=== PATIENT | female | born 1930 | race Hispanic/Latino ===

== ENCOUNTER 2017-04-03 17:21 | Inpatient (IN) | payer MEDICARE ==
--- NOTE | 2017-04-03 17:47 | ED PDOC ---
HPI: General Adult Time Seen by Provider: 04/03/17 17:31 Chief Complaint (Nursing): Medical Clearance Chief Complaint (Provider): Aggressive behavior History Per: Patient, Family History/Exam Limitations: clinical condition Onset/Duration Of Symptoms: Days (months) Have you had recent travel within the past 21 days to any of the following countries: [place], [place], [place] or [place]?: No Current Symptoms Are (Timing): Still Present Additional Complaint(s): Pt. with dementia and has been in a fci in [place]. Proxy brought pt. from there to [place] and [facility] as she wants pt. to be in [place]. States she can't take care of her. Has worsening dementia where pt. is not listening, resistant to things , and less verbal coherent communication. Per family, no chest pain, nausea, vomit, fever, dyspnea noted. Limited H and P due to dementia. Past Medical History Reviewed: Nursing Documentation, Vital Signs Vital Signs: Last Vital Signs Temp 98.1 F 04/03/17 17:37 Pulse 80 04/03/17 17:37 Resp 20 04/03/17 17:37 BP 162/82 H 04/03/17 17:37 Pulse Ox 97 04/03/17 17:49 - Medical History PMH: Alzheimer's Disease, HTN, Hypercholesterolemia - Surgical History Surgical History: No Surg Hx - Family History Family History: States: Unknown Family Hx - Living Arrangements Living Arrangements: With Family - Social History Current smoker - smoking cessation education provided: No Alcohol: None Drugs: Denies - Allergies Allergies/Adverse Reactions: Allergies Allergy/AdvReac Type Severity Reaction Status Date / Time No Known Allergies Allergy Verified 04/03/17 17:37 Review of Systems Review Of Systems: ROS cannot be obtained secondary to pt's inabilty to answer questions. Physical Exam - Reviewed Nursing Documentation Reviewed: Yes Vital Signs Reviewed: Yes - Physical Exam Appears: Positive for: Non-toxic, No Acute Distress Head Exam: Positive for: ATRAUMATIC, NORMAL INSPECTION, NORMOCEPHALIC Skin: Positive for: Normal Color, Warm, DRY Eye Exam: Positive for: EOMI, Normal appearance, PERRL ENT: Positive for: Normal ENT Inspection Neck: Positive for: Normal, Painless ROM, Supple Cardiovascular/Chest: Positive for: Regular Rate, Rhythm Respiratory: Positive for: CNT, Normal Breath Sounds Gastrointestinal/Abdominal: Positive for: Normal Exam, Bowel Sounds, Soft. Negative for: Tenderness Back: Positive for: Normal Inspection. Negative for: L CVA Tenderness, R CVA Tenderness Extremity: Positive for: Normal ROM. Negative for: Tenderness, Pedal Edema Neurologic/Psych: Positive for: Alert, Other (Follows some commands, but not able to speak in a converation; speaking in tangent words (not new, but worsening for pt.)). Negative for: Oriented - Laboratory Results Result Diagrams: 04/03/17 17:57 04/03/17 17:57 Interpretation Of Abn Labs: no acute - ECG ECG: Positive for: Interpreted By Me, Viewed By Me ECG Rhythm: Positive for: Normal QRS, Normal ST Segment, Sinus Rhythm O2 Sat by Pulse Oximetry: 97 - Radiology X-Ray: Read By Radiologist X-Ray Interpretation: No Acute Disease - Progress ED Course And Treament: 1854: Pending urine and psych. Dr. Barfield to take over care. Disposition - Clinical Impression Clinical Impression: Dementia - Patient ED Disposition Is Patient to be Admitted: Transfer of Care Counseled Patient/Family Regarding: Studies Performed, Diagnosis - Disposition Disposition: Transfer of Care Disposition Time: 18:55 Condition: STABLE Patient Signed Over To: Kam Barfield Present On Arrival: None
[2017-04-03 18:00] LABS: BASO # 0.1 K/uL (0.0-0.2); BASO % 1.3 % (0.0-2.0); EOS # 0.3 K/uL (0.0-0.7); HEMATOCRIT 37.9 % (34.0-47.0); LYMPH # 3.2 K/uL (1.0-4.3); LYMPH % 38.1 % (20.0-40.0); MEAN CELL VOLUME 89.8 fl (81.0-99.0); MEAN CORPUSCULAR HGB CONC 32.3 g/dL (33.0-37.0); MEAN PLATELET VOLUME 10.3 fl (7.2-11.7); MONO # 0.9 K/uL (0.0-0.8); MONO % 10.6 % (0.0-10.0); NRBC % 0.4 % (0.0-0.0); RED CELL DISTRIBUTION WIDTH 13.4 % (11.5-14.5); WHITE BLOOD COUNT 8.5 K/uL (4.8-10.8)
[2017-04-03 18:17] LABS: ALB/GLOB RATIO 1.1 (1.0-2.1); ALCOHOL SERUM < 10 mg/dl (0-10); ALKALINE PHOSPHATASE 103 U/L (38-126); ALT/SGPT 22 U/L (9-52); AST/SGOT 30 U/L (14-36); BILIRUBIN,TOTAL 0.3 mg/dl (0.2-1.3); BLOOD UREA NITROGEN 21 mg/dl (7-17); CALCIUM 9.3 mg/dL (8.4-10.2); CARBON DIOXIDE 29 mmol/L (22-30); CHLORIDE 106 mmol/L (98-107); GFR AFRICAN-AMERICAN > 60; GLUCOSE,RANDOM 112 mg/dL (65-105); POTASSIUM 4.2 MMOL/L (3.6-5.0); SODIUM 145 mmol/l (132-148); TOTAL PROTEIN 8.2 G/DL (6.3-8.2)
--- NOTE | 2017-04-03 18:28 | RAD ---
HISTORY: dyspnea COMPARISON: No prior. FINDINGS: LUNGS: The lungs are clear. PLEURA: No significant pleural effusion identified, no pneumothorax apparent. CARDIOVASCULAR: Normal. OSSEOUS STRUCTURES: No significant abnormalities. VISUALIZED UPPER ABDOMEN: Normal. OTHER FINDINGS: None. IMPRESSION: No active pulmonary disease.
--- NOTE | 2017-04-03 19:40 | ED PDOC ---
- Laboratory Results Result Diagrams: 04/03/17 17:57 04/03/17 17:57 - ECG O2 Sat by Pulse Oximetry: 97 (RA) Pulse Ox Interpretation: Normal Medical Decision Making Medical Decision Making: Time: 1899 --Patient was endorsed to provider by Dr. Bradley Jordan. Pending crisis evaluation. Time: 2099 --Patient was seen by Crisis and admitted under Dr. Herzog with dx: behavioral disturbance and dementia. Scribe Attestation: Documented by Radha Norwood, acting as a scribe for Kam Barfield MD. Provider Scribe Attestation: All medical record entries made by the Scribe were at my direction and personally dictated by me. I have reviewed the chart and agree that the record accurately reflects my personal performance of the history, physical exam, medical decision making, and the department course for this patient. I have also personally directed, reviewed, and agree with the discharge instructions and disposition. Disposition - Clinical Impression Clinical Impression: Dementia, Dementia with behavioral disturbance - POA Present On Arrival: None - Disposition Disposition: Admitted as In-Patient Disposition Time: 21:05 Condition: STABLE Forms: [employer] (Kazakh)
[2017-04-03 22:24] LABS: URINE COLOR YELLOW (YELLOW)
[2017-04-03 22:25] LABS: URINE BILIRUBIN NEGATIVE (NEGATIVE); URINE BLOOD TRACE-LYSED (NEGATIVE); URINE GLUCOSE (UA) NEGATIVE (Normal); URINE KETONE TRACE mg/dL (NEGATIVE)
[2017-04-03 22:26] LABS: PH,URINE 5.5 (5.0-8.0); RBC URINE 8 /hpf (0-3); URINE LEUKOCYTE ESTERASE TRACE Leu/uL (Negative); URINE PROTEIN 30 mg/dL (NEGATIVE); URINE UROBILINOGEN 0.2 mg/dL (0.2-1.0)
[2017-04-03 22:27] LABS: WBC URINE 26 /hpf (0-5)
[2017-04-03 22:28] LABS: URINE BACTERIA MOD (<OCC)
[2017-04-03] MEDS ORDERED: Alum-Mag Hydrox-Simethicone Susp (30 mL) PO PRN (23:34)
[2017-04-03] MEDS ORDERED: Bismuth Subsalicylate 262 mg/15 ml Sus (240 ml) PO PRN (23:34)
[2017-04-03] MEDS ORDERED: Magnesium Hydroxide Susp 30 ml UD PO PRN (23:34)
[2017-04-04 07:16] LABS: IRON 47 ug/dL (37-170)
[2017-04-04 07:29] LABS: CHOLESTEROL 157 mg/dL (0-199)
[2017-04-04 07:37] LABS: T4 9.87 ug/dl (5.5-11.0)
[2017-04-04 07:51] LABS: THYROID STIMULATING HORMONE 3.85 mIU/ML (0.46-4.68)
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
[2017-04-04] MEDS ORDERED: Ciprofloxacin 400mg/200ml D5W 400 MG/200 ML BAG IVPB SCH (10:00)
--- NOTE | 2017-04-04 10:41 | CARD ---
APPROVED REPORT EKG Measurement Heart [id number] CT [id number] <Conclusion> Normal sinus rhythm Moderate voltage criteria for LVH, may be normal variant Borderline ECG
[2017-04-04] MEDS: Levothyroxine 25 MCG TAB PO SCH (12:22)
[2017-04-04 12:55] LABS: FOLATE > 20.0 ng/mL
--- NOTE | 2017-04-04 18:28 | PCM.BM ---
<Lore Serra - Last Filed: 04/04/17 18:26> Treatment Plan Problems - Problems identified on initial assessmt Agressive Behavior Date Initiated: 04/04/17 Time Initiated: 18:27 Assessment reference: NA Status: Active Treatment assets and liabiliti Patient Assests: cooperative, good support system Patient Liabilities: medical problems, imparied memory, language/speech - Milieu Protocol Maintain good personal hygiene: every shift Encourage regular showers, every shift Remind patient to perform daily oral care, every shift Assist patient to perform ADL's Maintain personal safety: every shift Educate patient to report safety concerns to staff, every shift Monitor environment for contraband/sharps Medication safety: Monitor for expected outcome, potential side effects: every shift, Assess barriers to learning: every shift, Assess readiness for medication education: every shift Milieu Narrative: Alzheimer's Dementia w/ behavioral disturbance, Depressive Disorder -Admit to psychiatry -Case discussed w/ POA -Continue Celexa 10 mg PO Daily -Continue Aricept 10 mg PO HS -Start Namenda 5 mg PO Daily -Individual and group therapy -Disposition planning -No 1:1 indicated at this time -Medicine consult; patient on Cipro for UTI Discharge/Continuing Care - Treatment Team Participation Patient/Family/SO Statement: Alzheimer's Dementia w/ behavioral disturbance, Depressive Disorder -Admit to psychiatry -Case discussed w/ POA -Continue Celexa 10 mg PO Daily -Continue Aricept 10 mg PO HS -Start Namenda 5 mg PO Daily -Individual and group therapy -Disposition planning -No 1:1 indicated at this time -Medicine consult; patient on Cipro for UTI <Viviana Su - Last Filed: 04/05/17 07:52> - Diagnosis (1) Depression Status: Acute Interventions: Individual and group therapy, Medication management, Psychoeducation 04/05/17 07:52 (2) Dementia with behavioral disturbance Status: Acute Interventions: Individual and group therapy, Medication management, Psychoeducation 04/05/17 07:52 <Yu Jorge - Last Filed: 04/05/17 13:21> Family Contact Family involvement: Family/SO is involved Discharge/Continuing Care - Education Needs Education Needs: Family Medication, Family Diagnosis/Disease Process, Family Coping Skills, Family Anger Management skills, Family Placement options, Family Community resources, Family Activities of Daily Living, Family Uses of Medical Equipment, Family Health Practices/Safety, Family Personal Hygiene/Grooming, Family Aftercare Safety Plan, Patient Medication, Patient Diagnosis/Disease Process, Patient Coping Skills, Patient Anger Management skills, Patient Placement options, Patient Community resources, Patient Activities of Daily Living, Patient Uses of Medical Equipment, Patient Health Practices/Safety, Patient Personal Hygiene/Grooming, Patient Aftercare Safety Plan - Discharge Discharge Criteria: Tolerates medication w/o severe side effects, Free of agitation, Normal sleep pattern, Reduction of target symptoms Discharge to:: Home, With Family - Additional Comments 04/05/17 13:18 Pt discussed in team meeting. Reason for admission reviewed and discussed. Pt's social and medical issues reviewed. Pt's medications reviewed and discussed. Pt' s tx plan reviewed. Card Hand to contact pt's daughter and POA to obtain collateral information. Card Hand will continue to follow case. - Treatment Team Participation Discussed with Family/SO: No (Will be informed via t/c ) Was Patient/Family/SO present at Treatment Team Meeting: No (Pt observed to be asleep and not arousable)
--- NOTE | 2017-04-05 08:38 | PCM.PYCHPN ---
Psychiatric Progress Note - Psychiatric Progress Note Patient seen today, length of contact: Patient evaluated, case discussed w/ staff, chart reviewed, 35 min Patient Chief Complaint: "I'm okay" Problems Identified/Issues Discussed: Patient has no acute complaints. No periods of agitation or aggression. No depression/anxiety/SI/HI. Patient is only oriented to self and does not know why she is in the hospital. Medication Change: No Medical Record Reviewed: Yes Consults ordered or reviewed: Medicine, Podiatry, Physical Therapy Mental Status Examination - Cognitive Function Orientation: Person Memory: Impaired Attention: Poor Concentration: Poor Association: Loose Fund of Knowledge: Poor Decription of patient's judgement and insights: Chronic poor I/J due to dementia - Mood Mood: Neutral - Affect Affect: Constricted - Formal Thought Process Formal Thought Process: Loosening of associations Psychotic Thoughts and Behaviors: Denies AH/VH - Suicidal Ideation Suicidal Ideation: No - Homicidal Ideation Homicidal Ideation: No Goal/Treatment Plan - Goal/Treatment Plan Need for Continued Stay: Remain at risks for inpatient hospitalization, Severe functional impairment Progress Toward Problem(s) and Goals/Treatment Plan: Alzheimer's Dementia w/ behavioral disturbance, Depressive Disorder -Case discussed w/ POA -Continue Celexa 10 mg PO Daily -Continue Aricept 10 mg PO HS -Continue Namenda 5 mg PO Daily -Will consider starting Depakote 125 mg PO Daily@1700 if the patient shows signs of aggression or agitation -Individual and group therapy -Disposition planning -Medicine consult; patient on Cipro for UTI Estimated Date of D/C: 04/09/17 - Smoking Cessation Smoking Cessation Initiated: No Reason for not providing: Not indicated
[2017-04-05] MEDS: Levothyroxine 25 MCG TAB PO SCH (09:00)
[2017-04-06] MEDS: Levothyroxine 25 MCG TAB PO SCH (10:26)
--- NOTE | 2017-04-06 13:33 | PCM.PYCHPN ---
Psychiatric Progress Note - Psychiatric Progress Note Patient seen today, length of contact: Patient evaluated, case discussed w/ staff, chart reviewed, 35 min Patient Chief Complaint: pt defers understanding of reasons as to why she is in hospital, pt. requires redirection to be medication adherence, requires assistance oob to chair sleeping fair per report, appetite fair Problems Identified/Issues Discussed: alteration in cognition, alteration in behavior, alteration in self care-has health care proxy Medical Problems: pt being followed by hospitalist Diagnostic Results: per psychiatrist per medicine per nursing per social media manager Medication Change: No Medical Record Reviewed: Yes Consults ordered or reviewed: pt being followed by hospitalist Mental Status Examination - Cognitive Function Orientation: Person Memory: Impaired Attention: Poor Concentration: Poor Association: Loose Fund of Knowledge: Poor Decription of patient's judgement and insights: impaired - Mood Mood: Neutral - Affect Affect: Constricted - Speech Speech: Soft - Formal Thought Process Formal Thought Process: Loosening of associations - Suicidal Ideation Suicidal Ideation: No - Homicidal Ideation Homicidal Ideation: No Goal/Treatment Plan - Goal/Treatment Plan Need for Continued Stay: Remain at risks for inpatient hospitalization, Severe functional impairment Progress Toward Problem(s) and Goals/Treatment Plan: inpt milieu vital signs and visual observation per protocol and per status nursing staff to monitor intake (?decrease appetite) falls precautions, oob with assistance adjust meds per status discharge planning in progresss Estimated Date of D/C: 04/09/17 - Smoking Cessation Smoking Cessation Initiated: No Reason for not providing: pt defers
[2017-04-07] MEDS: Levothyroxine 25 MCG TAB PO SCH (08:42)
--- NOTE | 2017-04-07 14:52 | PCM.PYCHPN ---
Psychiatric Progress Note - Psychiatric Progress Note Patient seen today, length of contact: Patient evaluated, case discussed w/ staff, chart reviewed, 35 min Patient Chief Complaint: Pt. continues to be confused at times yelling per report of staff redirectable verbally per staff report. Impaired understanding of reasons as to why she is admitted. is in hospital, pt. requires redirection to be medication adherence, requires assistance oob to chair sleeping fair per report, appetite fair Problems Identified/Issues Discussed: alteration in cognition, alteration in behavior, alteration in self care-has health care proxy Medical Problems: pt being followed by hospitalist Diagnostic Results: per psychiatrist per medicine per nursing per psychiatric social worker DSM 5 Symptoms Update: chronic impaired memory, self care Medication Change: No Medical Record Reviewed: Yes Consults ordered or reviewed: pt being followed by hospitalist Mental Status Examination - Cognitive Function Orientation: Person Memory: Impaired Attention: Poor Concentration: Poor Association: Loose Fund of Knowledge: Poor Decription of patient's judgement and insights: impaired - Mood Mood: Neutral - Affect Affect: Constricted - Speech Speech: Soft - Formal Thought Process Formal Thought Process: Loosening of associations - Suicidal Ideation Suicidal Ideation: No - Homicidal Ideation Homicidal Ideation: No Goal/Treatment Plan - Goal/Treatment Plan Need for Continued Stay: Remain at risks for inpatient hospitalization, Severe functional impairment Progress Toward Problem(s) and Goals/Treatment Plan: inpt milieu vital signs and visual observation per protocol and per status nursing staff to monitor intake (?decrease appetite) falls precautions, oob with assistance adjust meds per status discharge planning in progresss Estimated Date of D/C: 04/09/17 - Smoking Cessation Smoking Cessation Initiated: No Reason for not providing: pt defers
[2017-04-08] MEDS: Levothyroxine 25 MCG TAB PO SCH (08:52)
--- NOTE | 2017-04-08 10:46 | PCM.PYCHPN ---
Psychiatric Progress Note - Psychiatric Progress Note Patient seen today, length of contact: Patient evaluated, case discussed w/ staff, chart reviewed, 35 min Patient Chief Complaint: "I'm okay" Problems Identified/Issues Discussed: Patient has no acute complaints. No periods of agitation or aggression. No depression/anxiety/SI/HI. Patient is only oriented to self and does not know why she is in the hospital. Patient does get irritable at times when having cares performed on her, but otherwise is calm and cooperative. Medication Change: No Medical Record Reviewed: Yes Consults ordered or reviewed: Medicine- patient being treated for a UTI, Podiatry, Physical Therapy Mental Status Examination - Cognitive Function Orientation: Person Memory: Impaired Attention: Poor Concentration: Poor Association: Loose Fund of Knowledge: Poor Decription of patient's judgement and insights: Chronic poor I/J due to dementia - Mood Mood: Neutral - Affect Affect: Constricted - Speech Speech: Soft - Formal Thought Process Formal Thought Process: Loosening of associations Psychotic Thoughts and Behaviors: NO AH/VH/paranoia/delusions - Suicidal Ideation Suicidal Ideation: No - Homicidal Ideation Homicidal Ideation: No Goal/Treatment Plan - Goal/Treatment Plan Need for Continued Stay: Remain at risks for inpatient hospitalization, Severe functional impairment Progress Toward Problem(s) and Goals/Treatment Plan: Alzheimer's Dementia w/ behavioral disturbance, Depressive Disorder -Case discussed w/ POA -Continue Celexa 10 mg PO Daily -Continue Aricept 10 mg PO HS -Continue Namenda 5 mg PO Daily -Individual and group therapy -Disposition planning -Medicine consult; patient on Cipro for UTI Estimated Date of D/C: 04/09/17
--- NOTE | 2017-04-08 13:13 | CP.PCM.CON ---
History of Present Illness - History of Present Illness History of Present Illness: Hospitalist Consult Note 86 year old female patient PMHx dementia seen in psychiatric unit at the request for medical consultation. HPI obtained with the assistance of speech scientist. Patient is pleasant, NAD. Patient is a poor historian with decreased verbal coherent communication. Patient aware of her name, but unable to assess ROS secondary to dementia. Patient denies of any issues with urination ; however per manager endoscopy, patient has been frequently urinating on herself. Patient denies N/V/F/D/C/SOB/chest palpitations. PMH/PSH/FH/SH/Meds/All/ROS as per chart; unable to be obtained from patient / dementia Review of Systems - Review of Systems All systems: reviewed and no additional remarkable complaints except (as per HPI ) Past Patient History - Past Social History Alcohol: None Drugs: Denies - CARDIAC Hx Cardiac Disorders: Yes (HTN/ High Cholesterol) - PULMONARY Hx Tuberculosis: No - NEUROLOGICAL Hx Neurological Disorder: Yes (Dementia) - ENDOCRINE/METABOLIC Hx Hypothyroidism: Yes - HEMATOLOGICAL/ONCOLOGICAL Hx Cancer: No Hx Human Immunodeficiency Virus (HIV): No - MUSCULOSKELETAL/RHEUMATOLOGICAL Hx Falls: Yes - GENITOURINARY/GYNECOLOGICAL Hx Sexually Transmitted Disorders: No - PSYCHIATRIC Hx Anxiety: Yes Hx Bipolar Disorder: Yes Hx Depression: Yes Hx Substance Use: No - SURGICAL HISTORY Hx Orthopedic Surgery: Yes (Left knee surgery) Meds Allergies/Adverse Reactions: Allergies Allergy/AdvReac Type Severity Reaction Status Date / Time No Known Allergies Allergy Verified 04/03/17 17:37 - Medications Medications: Current Medications Acetaminophen (Tylenol 325mg Tab) 650 mg PO Q4 PRN PRN Reason: Pain, moderate (4-7) Al Hydrox/Mg Hydrox/Simethicone (Maalox Plus 30 Ml) 30 ml PO Q4 PRN PRN Reason: Dyspepsia Atorvastatin Calcium (Lipitor) 10 mg PO HS [facility] Last Admin: 04/07/17 21:07 Dose: 10 mg Bismuth Subsalicylate (Pepto-Bismol) 524 mg PO Q4 PRN PRN Reason: Diarrhea Ciprofloxacin (Cipro) 500 mg PO Q12 [facility] PRN Reason: Protocol Last Admin: 04/08/17 08:52 Dose: 500 mg Citalopram Hydrobromide (Celexa) 10 mg PO DAILY [facility] Last Admin: 04/08/17 08:53 Dose: 10 mg Docusate Sodium (Colace) 200 mg PO HS [facility] Last Admin: 04/07/17 21:07 Dose: 200 mg Donepezil HCl (Aricept) 10 mg PO HS [facility] Last Admin: 04/07/17 21:07 Dose: 10 mg Levothyroxine Sodium (Synthroid) 25 mcg PO DAILY@0630 [facility] Last Admin: 04/08/17 08:52 Dose: 25 mcg Lorazepam (Ativan) 0.5 mg PO HS PRN PRN Reason: Insomnia Stop: 04/17/17 23:35 Lorazepam (Ativan) 0.5 mg PO Q6 PRN PRN Reason: Anixety/Agitation Stop: 04/17/17 23:35 Losartan Potassium (Cozaar) 50 mg PO DAILY [facility] Last Admin: 04/08/17 08:52 Dose: 50 mg Magnesium Hydroxide (Milk Of Magnesia) 30 ml PO HS PRN PRN Reason: Constipation Memantine (Namenda) 5 mg PO DAILY [facility] Last Admin: 04/08/17 08:53 Dose: 5 mg Sennosides (Senokot Tab) 17.[address] [facility] Last Admin: 04/07/17 21:09 Dose: 17.2 mg Physical Exam - Constitutional Appears: Well, Non-toxic, No Acute Distress, Confused - Head Exam Head Exam: ATRAUMATIC, NORMAL INSPECTION, NORMOCEPHALIC - Eye Exam Eye Exam: EOMI, Normal appearance, PERRL Pupil Exam: NORMAL ACCOMODATION, PERRL - ENT Exam ENT Exam: Mucous Membranes Moist, Normal Exam, Normal External Ear Exam - Neck Exam Neck exam: Positive for: Full Rom, Normal Inspection. Negative for: Tenderness - Respiratory Exam Respiratory Exam: Clear to Auscultation Bilateral, NORMAL BREATHING PATTERN. absent: Rales, Rhonchi, Wheezes - Cardiovascular Exam Cardiovascular Exam: REGULAR RHYTHM, +S1, +S2. absent: Rubs, Systolic Murmur - GI/Abdominal Exam GI & Abdominal Exam: Normal Bowel Sounds, Soft. absent: Firm, Guarding, Pulsatile Mass, Tenderness - Rectal Exam Rectal Exam: Deferred - Extremities Exam Extremities exam: Positive for: full ROM, normal capillary refill, normal inspection. Negative for: tenderness - Back Exam Back exam: NORMAL INSPECTION - Neurological Exam Neurological exam: Alert - Skin Skin Exam: Intact, Normal Color, Warm Results - Vital Signs Recent Vital Signs: Last Vital Signs Temp 97.3 F L 04/08/17 05:20 Pulse 73 04/08/17 08:52 Resp 20 04/08/17 05:20 BP 158/82 H 04/08/17 08:52 Pulse Ox 99 04/03/17 22:51 - Labs Result Diagrams: 04/03/17 17:57 04/03/17 17:57 Assessment & Plan (1) Dementia Assessment and Plan: Management per psychiatry Status: Acute (2) Urinary tract infection Assessment and Plan: Urinalysis from 04/03 positive for UTI Continue ciprofloxacin Follow up UA ordered today, 04/08 F/u urine culture Status: Acute (3) Stomach discomfort Assessment and Plan: Maalox prn dyspepsia Pepto Bismol prn diarrhea Status: Acute (4) Hyperlipidemia Assessment and Plan: Continue Lipitor Status: Acute (5) Hypothyroidism Assessment and Plan: Continue Synthroid Status: Acute
--- NOTE | 2017-04-09 08:20 | PCM.PYCHPN ---
Psychiatric Progress Note - Psychiatric Progress Note Patient seen today, length of contact: Patient evaluated, case discussed w/ staff, chart reviewed, 35 min Patient Chief Complaint: "I'm okay" Problems Identified/Issues Discussed: Patient has no acute complaints. No periods of agitation or aggression. No depression/anxiety/SI/HI. Patient is only oriented to self and does not know why she is in the hospital. Patient is at her baseline of functioning. Medication Change: No Medical Record Reviewed: Yes Consults ordered or reviewed: Medicine- patient being treated for a UTI, Podiatry, Physical Therapy Mental Status Examination - Cognitive Function Orientation: Person Memory: Impaired Attention: Poor Concentration: Poor Association: Loose Fund of Knowledge: Poor Decription of patient's judgement and insights: Chronic poor I/J due to dementia - Mood Mood: Neutral - Affect Affect: Constricted - Speech Speech: Soft - Formal Thought Process Formal Thought Process: Loosening of associations Psychotic Thoughts and Behaviors: NO AH/VH/paranoia/delusions - Suicidal Ideation Suicidal Ideation: No - Homicidal Ideation Homicidal Ideation: No Goal/Treatment Plan - Goal/Treatment Plan Need for Continued Stay: Severe functional impairment Progress Toward Problem(s) and Goals/Treatment Plan: Alzheimer's Dementia w/ behavioral disturbance, Depressive Disorder; patient is currently at her baseline of functioning and is psychiatrically stable. -Case discussed w/ POA -Continue Celexa 10 mg PO Daily -Continue Aricept 10 mg PO HS -Continue Namenda 5 mg PO Daily -Individual and group therapy -Disposition planning -Medicine consult appreciated; patient on Cipro for UTI for 7 days Estimated Date of D/C: 04/11/17 - Smoking Cessation Smoking Cessation Initiated: No Reason for not providing: Not indicated
[2017-04-09] MEDS: Levothyroxine 25 MCG TAB PO SCH (09:14)
[2017-04-10] MEDS: Levothyroxine 25 MCG TAB PO SCH (09:27)
[2017-04-10 15:21] LABS: RBC URINE 3 /hpf (0-3); URINE BACTERIA RARE (<OCC); URINE BILIRUBIN NEGATIVE (NEGATIVE); URINE BLOOD NEGATIVE (NEGATIVE); URINE COLOR YELLOW (YELLOW); URINE GLUCOSE (UA) NEG (Normal); URINE KETONE NEGATIVE (NEGATIVE); URINE LEUKOCYTE ESTERASE NEG Leu/uL (Negative); URINE PROTEIN NEGATIVE (NEGATIVE); URINE UROBILINOGEN 0.2-1.0 mg/dL (0.2-1.0); WBC URINE 1 /hpf (0-5)
[2017-04-10 17:20] LABS: HEMATOCRIT 35.6 % (34.0-47.0); MEAN CELL VOLUME 88.3 fl (81.0-99.0); MEAN CORPUSCULAR HEMOGLOBIN 29.1 pg (27.0-31.0); RED CELL DISTRIBUTION WIDTH 13.7 % (11.5-14.5); WHITE BLOOD COUNT 5.9 K/uL (4.8-10.8)
[2017-04-10 17:24] LABS: BLOOD UREA NITROGEN 18 mg/dl (7-17); CALCIUM 9.3 mg/dL (8.4-10.2); CARBON DIOXIDE 29 mmol/L (22-30); CHLORIDE 105 mmol/L (98-107); GFR AFRICAN-AMERICAN > 60; GLUCOSE,RANDOM 105 mg/dL (65-105); POTASSIUM 4.2 MMOL/L (3.6-5.0); SODIUM 141 mmol/l (132-148)
--- NOTE | 2017-04-10 18:35 | PCM.PYCHPN ---
Psychiatric Progress Note - Psychiatric Progress Note Patient seen today, length of contact: Patient evaluated, case discussed w/ staff, chart reviewed, 35 min Patient Chief Complaint: staff report pt. with decreased po intake, decreased alertness, remained in bed today, did not want to get out of bed. pt was seen by hospitalist today and is being treated for uti. pt requires total care. healthcare social worker is assisting team with place-has been in communication with daughter. Problems Identified/Issues Discussed: alteration in cognition, alteration in behavior, alteration in self care-has health care proxy Medical Problems: pt being followed by hospitalist Diagnostic Results: per psychiatrist per medicine per nursing per healthcare social worker DSM 5 Symptoms Update: decreased alertness, changes in po intake continues to be confused Medication Change: No Medical Record Reviewed: Yes Consults ordered or reviewed: pt is being followed by hospitalist Mental Status Examination - Cognitive Function Orientation: Person Memory: Impaired Attention: Poor Concentration: Poor Association: Loose Fund of Knowledge: Poor Decription of patient's judgement and insights: poor - Mood Mood: Neutral - Affect Affect: Constricted - Speech Speech: Soft - Formal Thought Process Formal Thought Process: Loosening of associations - Suicidal Ideation Suicidal Ideation: No - Homicidal Ideation Homicidal Ideation: No Goal/Treatment Plan - Goal/Treatment Plan Need for Continued Stay: Severe functional impairment Progress Toward Problem(s) and Goals/Treatment Plan: inpt milieu vital signs and visual observation per protocol and per status nursing staff to monitor intake (?decrease appetite)-spoke with nutrition-will assess implement calorie count falls precautions, oob with assistance adjust meds per status discharge planning in progresss Estimated Date of D/C: 04/15/17 - Smoking Cessation Smoking Cessation Initiated: No Reason for not providing: deferred
--- NOTE | 2017-04-10 19:15 | CP.PCM.CON ---
History of Present Illness - History of Present Illness History of Present Illness: Patient consulted for elongated, fungal, dystrophic, fungal nails. Patient states that nails have been this way as long as she can remember. Denies any further pedal complaints at this time. Denies N/V/F/C/CP/SOB Past Patient History - Past Social History Alcohol: None Drugs: Denies - CARDIAC Hx Cardiac Disorders: Yes (HTN/ High Cholesterol) - PULMONARY Hx Tuberculosis: No - NEUROLOGICAL Hx Neurological Disorder: Yes (Dementia) - ENDOCRINE/METABOLIC Hx Hypothyroidism: Yes - HEMATOLOGICAL/ONCOLOGICAL Hx Cancer: No Hx Human Immunodeficiency Virus (HIV): No - MUSCULOSKELETAL/RHEUMATOLOGICAL Hx Falls: Yes - GENITOURINARY/GYNECOLOGICAL Hx Sexually Transmitted Disorders: No - PSYCHIATRIC Hx Anxiety: Yes Hx Bipolar Disorder: Yes Hx Depression: Yes Hx Substance Use: No - SURGICAL HISTORY Hx Orthopedic Surgery: Yes (Left knee surgery) Meds Allergies/Adverse Reactions: Allergies Allergy/AdvReac Type Severity Reaction Status Date / Time No Known Allergies Allergy Verified 04/03/17 17:37 - Medications Medications: Current Medications Acetaminophen (Tylenol 325mg Tab) 650 mg PO Q4 PRN PRN Reason: Pain, moderate (4-7) Al Hydrox/Mg Hydrox/Simethicone (Maalox Plus 30 Ml) 30 ml PO Q4 PRN PRN Reason: Dyspepsia Atorvastatin Calcium (Lipitor) 10 mg PO HS [facility] Last Admin: 04/09/17 22:00 Dose: Not Given Bismuth Subsalicylate (Pepto-Bismol) 524 mg PO Q4 PRN PRN Reason: Diarrhea Ciprofloxacin (Cipro) 500 mg PO Q12 [facility] PRN Reason: Protocol Last Admin: 04/10/17 08:58 Dose: 500 mg Citalopram Hydrobromide (Celexa) 10 mg PO DAILY [facility] Last Admin: 04/10/17 09:26 Dose: 10 mg Docusate Sodium (Colace) 200 mg PO [facility] Last Admin: 04/09/17 22:00 Dose: Not Given Donepezil HCl (Aricept) 10 mg PO HS [facility] Last Admin: 04/09/17 22:00 Dose: Not Given Levothyroxine Sodium (Synthroid) 25 mcg PO DAILY@0630 [facility] Last Admin: 04/10/17 09:27 Dose: 25 mcg Lorazepam (Ativan) 0.5 mg PO HS PRN PRN Reason: Insomnia Stop: 04/17/17 23:35 Lorazepam (Ativan) 0.5 mg PO Q6 PRN PRN Reason: Anixety/Agitation Stop: 04/17/17 23:35 Losartan Potassium (Cozaar) 50 mg PO DAILY [facility] Last Admin: 04/10/17 09:26 Dose: 50 mg Magnesium Hydroxide (Milk Of Magnesia) 30 ml PO HS PRN PRN Reason: Constipation Memantine (Namenda) 5 mg PO DAILY [facility] Last Admin: 04/10/17 09:26 Dose: 5 mg Sennosides (Senokot Tab) 17.2 mg PO HS [facility] Last Admin: 04/09/17 22:00 Dose: Not Given Physical Exam - Constitutional Appears: Well, Non-toxic, No Acute Distress - Extremities Exam Additional comments: LE focused exam Vasc: DP/PT pulses palpable 2/4 b/l. Skin temperature warm to warm from proximal to distal. CFT < 3 seconds to all digits b/l. Pedal hair growth appreciated. No edema noted b/l Neuro: Epicritic and protective sensation grossly intact b/l Derm: No open lesions, wounds, maceration, xerosis, abnormal pigmentation or abnormal growths noted. Nails noted to be dystrophic and elongated 1-5 b/l. MSK: No POP to b/l LE. MMT 5/5 on inversion, eversion, dorsiflexion and plantarflexion of feet b/l. ROM WNL to all major joints of LE - Neurological Exam Neurological exam: Alert, Oriented x3 - Psychiatric Exam Psychiatric exam: Normal Affect, Normal Mood Results - Vital Signs Recent Vital Signs: Last Vital Signs Temp 97.8 F 04/10/17 15:23 Pulse 81 04/10/17 15:23 Resp 18 04/10/17 15:23 BP 138/70 04/10/17 15:23 Pulse Ox 99 04/03/17 22:51 - Labs Result Diagrams: 04/10/17 16:50 04/10/17 16:50 Labs: Laboratory Results - last 24 hr 04/10/17 04/10/17 04/10/17 15:00 16:50 16:50 WBC 5.9 RBC 4.03 Hgb 11.7 L Hct 35.6 MCV 88.3 MCH 29.1 MCHC 33.0 RDW 13.7 Plt Count 234 Sodium 141 Potassium 4.2 Chloride 105 Carbon Dioxide 29 Anion Gap 12 BUN 18 H Creatinine 0.8 Est GFR ( Amer) > 60 Est GFR (Non-Af Amer) > 60 Random Glucose 105 Calcium 9.3 Urine Color Yellow Urine Clarity Slighty-cloudy Urine pH 5.0 Ur Specific [place] 1.027 Urine Protein Negative Urine Glucose (UA) Neg Urine Ketones Negative Urine Blood Negative Urine Nitrate Negative Urine Bilirubin Negative Urine Urobilinogen 0.2-1.0 Ur Leukocyte Esterase Neg Urine RBC (Auto) 3 Urine Microscopic WBC 1 Ur Squamous Epith Cells 1 Urine Bacteria Rare Assessment & Plan - Assessment and Plan (Free Text) Assessment: 86 year old female seen for elongated, dystrophic, painful nails b/l Plan: Patient seen and evaluated at bedside Nails 1-5 b/l cut down to appropriate length using nail nippers without incident Patient tolerated procedure well Podiatry will sign off at this time Please reconsult as needed, thank you - Date & Time Date: 04/10/17 Time: 15:16
[2017-04-11] MEDS: Levothyroxine 25 MCG TAB PO SCH (08:40)
--- NOTE | 2017-04-11 17:09 | PCM.PYCHPN ---
Psychiatric Progress Note - Psychiatric Progress Note Patient seen today, length of contact: Patient evaluated, case discussed w/ staff, chart reviewed, 35 min Patient Chief Complaint: staff report pt. with decreased po intake, decreased alertness, remained in bed today, did not want to get out of bed. pt was seen by hospitalist today and is being treated for uti. pt requires total care. geriatric social worker is assisting team with place-has been in communication with daughter. Problems Identified/Issues Discussed: alteration in cognition, alteration in behavior, alteration in self care-has health care proxy Medical Problems: pt being followed by hospitalist Diagnostic Results: per psychiatrist per medicine per nursing per geriatric social worker DSM 5 Symptoms Update: pt seen by podiatry, pt has required much redirection to take medications and po intake-pt with decreased po intake Medication Change: No Medical Record Reviewed: Yes Consults ordered or reviewed: pt is being followed by hospitalist Mental Status Examination - Cognitive Function Orientation: Person Memory: Impaired Attention: Poor Concentration: Poor Association: Loose Fund of Knowledge: Poor Decription of patient's judgement and insights: poor - Mood Mood: Neutral - Affect Affect: Constricted - Speech Speech: Soft - Formal Thought Process Formal Thought Process: Loosening of associations - Suicidal Ideation Suicidal Ideation: No - Homicidal Ideation Homicidal Ideation: No Goal/Treatment Plan - Goal/Treatment Plan Need for Continued Stay: Severe functional impairment Progress Toward Problem(s) and Goals/Treatment Plan: inpt milieu vital signs and visual observation per protocol and per status nursing staff to monitor intake (?decrease appetite)-spoke with nutrition-will assess implement calorie count falls precautions, oob with assistance adjust meds per status pt seen by podiatry discharge planning in progresss Estimated Date of D/C: 04/15/17 - Smoking Cessation Smoking Cessation Initiated: No Reason for not providing: deferred
[2017-04-12] MEDS: Levothyroxine 25 MCG TAB PO SCH (09:27)
--- NOTE | 2017-04-12 12:57 | PCM.PYCHPN ---
Psychiatric Progress Note - Psychiatric Progress Note Patient seen today, length of contact: Patient evaluated, case discussed w/ staff, chart reviewed, 35 min Patient Chief Complaint: "I'm okay" Problems Identified/Issues Discussed: Patient is improving. She has improved eating w/ staff direction and assistance. No periods of agitation or aggression. No depression/anxiety/SI/ HI. Patient is only oriented to self and does not know why she is in the hospital. Patient completed her antibiotic course for UTI. Medication Change: No Medical Record Reviewed: Yes Consults ordered or reviewed: Medicine- patient completed antibiotic course for UTI, Podiatry, Physical Therapy Mental Status Examination - Cognitive Function Orientation: Person Memory: Impaired Attention: Poor Concentration: Poor Association: Loose Fund of Knowledge: Poor Decription of patient's judgement and insights: Chronic poor I/J due to dementia - Mood Mood: Neutral - Affect Affect: Constricted - Speech Speech: Soft - Formal Thought Process Formal Thought Process: Loosening of associations Psychotic Thoughts and Behaviors: NO AH/VH/paranoia/delusions - Suicidal Ideation Suicidal Ideation: No - Homicidal Ideation Homicidal Ideation: No Goal/Treatment Plan - Goal/Treatment Plan Need for Continued Stay: Severe functional impairment Progress Toward Problem(s) and Goals/Treatment Plan: Alzheimer's Dementia w/ behavioral disturbance, Depressive Disorder; patient is improving clinically. -Case discussed w/ POA -Continue Celexa 10 mg PO Daily -Continue Remeron 7.5 mg PO HS -Continue Aricept 10 mg PO HS -Continue Namenda 5 mg PO Daily -Individual and group therapy -Disposition planning -Medicine consult appreciated; patient completed antibiotic course for UTI Estimated Date of D/C: 04/15/17
--- NOTE | 2017-04-12 14:12 | PCM.BM ---
Treatment Plan Problems - Problems identified on initial assessmt Agressive Behavior Date Initiated: 04/04/17 Time Initiated: 18:27 Assessment reference: NA Status: Active Treatment assets and liabiliti Patient Assests: cooperative, good support system Patient Liabilities: medical problems, imparied memory, language/speech - Milieu Protocol Maintain good personal hygiene: every shift Encourage regular showers, every shift Remind patient to perform daily oral care, every shift Assist patient to perform ADL's Maintain personal safety: every shift Educate patient to report safety concerns to staff, every shift Monitor environment for contraband/sharps Medication safety: Monitor for expected outcome, potential side effects: every shift, Assess barriers to learning: every shift, Assess readiness for medication education: every shift Milieu Narrative: Alzheimer's Dementia w/ behavioral disturbance, Depressive Disorder; patient is improving clinically. -Case discussed w/ POA -Continue Celexa 10 mg PO Daily -Continue Remeron 7.5 mg PO HS -Continue Aricept 10 mg PO HS -Continue Namenda 5 mg PO Daily -Individual and group therapy -Disposition planning -Medicine consult appreciated; patient completed antibiotic course for UTI Family Contact Family involvement: Family/SO is involved Family contact: Other Family contact name: Whit Zepeda - Proxy Family contacted how many times per week?: 1 Family contact comment: [phone] Discharge/Continuing Care - Education Needs Education Needs: Family Medication, Family Diagnosis/Disease Process, Family Coping Skills, Family Anger Management skills, Family Placement options, Family Community resources, Family Activities of Daily Living, Family Uses of Medical Equipment, Family Health Practices/Safety, Family Personal Hygiene/Grooming, Family Aftercare Safety Plan, Patient Medication, Patient Diagnosis/Disease Process, Patient Coping Skills, Patient Anger Management skills, Patient Placement options, Patient Community resources, Patient Activities of Daily Living, Patient Uses of Medical Equipment, Patient Health Practices/Safety, Patient Personal Hygiene/Grooming, Patient Aftercare Safety Plan - Discharge Discharge Criteria: Tolerates medication w/o severe side effects, Free of agitation, Normal sleep pattern, Reduction of target symptoms Discharge to:: Home, With Family - Additional Comments 04/05/17 13:18 Pt discussed in team meeting. Reason for admission reviewed and discussed. Pt's social and medical issues reviewed. Pt's medications reviewed and discussed. Pt' s tx plan reviewed. Director Of Reservations to contact pt's daughter and POA to obtain collateral information. Director Of Reservations will continue to follow case. - Treatment Team Participation Patient/Family/SO Statement: Alzheimer's Dementia w/ behavioral disturbance, Depressive Disorder; patient is improving clinically. -Case discussed w/ POA -Continue Celexa 10 mg PO Daily -Continue Remeron 7.5 mg PO HS -Continue Aricept 10 mg PO HS -Continue Namenda 5 mg PO Daily -Individual and group therapy -Disposition planning -Medicine consult appreciated; patient completed antibiotic course for UTI Discussed with Family/SO: No (Will be informed via t/c ) Was Patient/Family/SO present at Treatment Team Meeting: No (Pt observed to be asleep and not arousable) Treatment Plan Review - Problem Agressive Behavior Date Initiated: 04/12/17 Time Initiated: 14:11 Progress toward outcomes: improved - Discharge / Continuing Care Discharge to:: Home, With Family Behavioral Health Services: Outpatient therapy Health Needs: Follow up care/test, Medications/Rx (Pt still requires further stabilization and medication adjustment. )
[2017-04-13] MEDS: Levothyroxine 25 MCG TAB PO SCH (08:31)
--- NOTE | 2017-04-13 08:46 | PCM.PYCHPN ---
Psychiatric Progress Note - Psychiatric Progress Note Patient seen today, length of contact: Patient evaluated, case discussed w/ staff, chart reviewed, 35 min Patient Chief Complaint: "I'm okay" Problems Identified/Issues Discussed: Patient seems to be at her baseline of functioning. She has improved eating w/ staff direction and assistance. No periods of agitation or aggression. No depression/anxiety/SI/HI. Patient is only oriented to self and does not know why she is in the hospital. Patient completed her antibiotic course for UTI. Medication Change: No Medical Record Reviewed: Yes Mental Status Examination - Cognitive Function Orientation: Person Memory: Impaired Attention: Poor Concentration: Poor Association: Loose Fund of Knowledge: Poor Decription of patient's judgement and insights: Chronic poor I/J due to dementia - Mood Mood: Neutral - Affect Affect: Constricted - Speech Speech: Soft - Formal Thought Process Formal Thought Process: Loosening of associations Psychotic Thoughts and Behaviors: NO AH/VH/paranoia/delusions - Suicidal Ideation Suicidal Ideation: No - Homicidal Ideation Homicidal Ideation: No Goal/Treatment Plan - Goal/Treatment Plan Need for Continued Stay: Severe functional impairment Progress Toward Problem(s) and Goals/Treatment Plan: Alzheimer's Dementia w/ behavioral disturbance, Depressive Disorder; patient seems to be at her baseline of functioning, will discuss disposition options with the family. -Case discussed w/ POA -Continue Celexa 10 mg PO Daily -Continue Remeron 7.5 mg PO HS -Continue Aricept 10 mg PO HS -Continue Namenda 5 mg PO Daily -Individual and group therapy -Disposition planning -Medicine consult appreciated; patient completed antibiotic course for UTI Estimated Date of D/C: 04/16/17
[2017-04-14] MEDS: Levothyroxine 25 MCG TAB PO SCH (08:33)
--- NOTE | 2017-04-14 09:35 | PCM.PYCHPN ---
Psychiatric Progress Note - Psychiatric Progress Note Patient seen today, length of contact: Patient evaluated, case discussed w/ staff, chart reviewed Patient Chief Complaint: "I'm okay" Problems Identified/Issues Discussed: No new events. Patient seems to be at her baseline of functioning. She has improved eating w/ staff direction and assistance. No periods of agitation or aggression. No depression/anxiety/SI/HI. Patient is only oriented to self and does not know why she is in the hospital. Patient completed her antibiotic course for UTI. Medication Change: No Medical Record Reviewed: Yes Mental Status Examination - Cognitive Function Orientation: Person Memory: Impaired Attention: Poor Concentration: Poor Association: Loose Fund of Knowledge: Poor Decription of patient's judgement and insights: Chronic poor I/J due to dementia - Mood Mood: Neutral - Affect Affect: Constricted - Speech Speech: Soft - Formal Thought Process Formal Thought Process: Loosening of associations Psychotic Thoughts and Behaviors: NO AH/VH/paranoia/delusions - Suicidal Ideation Suicidal Ideation: No - Homicidal Ideation Homicidal Ideation: No Goal/Treatment Plan - Goal/Treatment Plan Need for Continued Stay: Severe functional impairment Progress Toward Problem(s) and Goals/Treatment Plan: Alzheimer's Dementia w/ behavioral disturbance, Depressive Disorder; patient seems to be at her baseline of functioning, will discuss disposition options with the family. -Case discussed w/ POA -Continue Celexa 10 mg PO Daily -Continue Remeron 7.5 mg PO HS -Continue Aricept 10 mg PO HS -Continue Namenda 5 mg PO Daily -Individual and group therapy -Disposition planning -Medicine consult appreciated; patient completed antibiotic course for UTI Estimated Date of D/C: 04/16/17
--- NOTE | 2017-04-15 08:45 | PCM.PYCHPN ---
Psychiatric Progress Note - Psychiatric Progress Note Patient seen today, length of contact: Patient evaluated, case discussed w/ staff, chart reviewed Patient Chief Complaint: "I'm okay" Problems Identified/Issues Discussed: No new events over the weekend. Patient seems to be at her baseline of functioning. She has improved eating w/ staff direction and assistance. No periods of agitation or aggression. No depression/anxiety/SI/HI. Patient is only oriented to self and does not know why she is in the hospital. Patient completed her antibiotic course for UTI. Medication Change: No Medical Record Reviewed: Yes Mental Status Examination - Cognitive Function Orientation: Person Memory: Impaired Attention: Poor Concentration: Poor Association: Loose Fund of Knowledge: Poor Decription of patient's judgement and insights: Chronic poor I/J due to dementia - Mood Mood: Neutral - Affect Affect: Constricted - Speech Speech: Soft - Formal Thought Process Formal Thought Process: Loosening of associations Psychotic Thoughts and Behaviors: NO AH/VH/paranoia/delusions - Suicidal Ideation Suicidal Ideation: No - Homicidal Ideation Homicidal Ideation: No Goal/Treatment Plan - Goal/Treatment Plan Need for Continued Stay: Severe functional impairment Progress Toward Problem(s) and Goals/Treatment Plan: Alzheimer's Dementia w/ behavioral disturbance, Depressive Disorder; patient seems to be at her baseline of functioning. -Case discussed w/ POA -Continue Celexa 10 mg PO Daily -Continue Remeron 7.5 mg PO HS -Continue Aricept 10 mg PO HS -Continue Namenda 5 mg PO Daily -Individual and group therapy -Disposition planning- PAS to [facility] submitted, pending approval for long-term placement -Medicine consult appreciated; patient completed antibiotic course for UTI Estimated Date of D/C: 04/22/17
[2017-04-15] MEDS: Levothyroxine 25 MCG TAB PO SCH (10:00)
[2017-04-16 06:16] VITALS: O2SAT 20
[2017-04-16] MEDS: Levothyroxine 25 MCG TAB PO SCH (08:10)
--- NOTE | 2017-04-16 08:45 | PCM.PYCHPN ---
Psychiatric Progress Note - Psychiatric Progress Note Patient seen today, length of contact: Patient evaluated, case discussed w/ staff, chart reviewed Patient Chief Complaint: "I'm okay" Problems Identified/Issues Discussed: Patient has had poor PO intake. Remeron was increased, supplements were modified and I + Os will continue to be monitored. No periods of agitation or aggression. No depression/anxiety/SI/HI. Patient is only oriented to self and does not know why she is in the hospital. Patient completed her antibiotic course for UTI. Medication Change: Yes (Remeron increased to 15 mg PO HS) Medical Record Reviewed: Yes Consults ordered or reviewed: Medicine- patient completed antibiotic course for UTI, Podiatry, Physical Therapy, Dietitian referral Mental Status Examination - Cognitive Function Orientation: Person Memory: Impaired Attention: Poor Concentration: Poor Association: Loose Fund of Knowledge: Poor Decription of patient's judgement and insights: Chronic poor I/J due to dementia - Mood Mood: Neutral - Affect Affect: Constricted - Speech Speech: Soft - Formal Thought Process Formal Thought Process: Loosening of associations Psychotic Thoughts and Behaviors: NO AH/VH/paranoia/delusions - Suicidal Ideation Suicidal Ideation: No - Homicidal Ideation Homicidal Ideation: No Goal/Treatment Plan - Goal/Treatment Plan Need for Continued Stay: Severe functional impairment Progress Toward Problem(s) and Goals/Treatment Plan: Alzheimer's Dementia w/ behavioral disturbance, Depressive Disorder. -Case discussed w/ POA -Continue Celexa 10 mg PO Daily -Increase Remeron to 15 mg PO HS -Continue Aricept 10 mg PO HS -Continue Namenda 5 mg PO Daily -Individual and group therapy -Disposition planning- PAS to [facility] submitted, pending approval for skilled nursing placement -Medicine consult appreciated; patient completed antibiotic course for UTI Estimated Date of D/C: 04/22/17
[2017-04-17] MEDS: Levothyroxine 25 MCG TAB PO SCH (08:29)
--- NOTE | 2017-04-17 11:10 | PCM.PYCHPN ---
Psychiatric Progress Note - Psychiatric Progress Note Patient seen today, length of contact: Patient evaluated, case discussed w/ staff, chart reviewed Patient Chief Complaint: "I'm okay" Problems Identified/Issues Discussed: Patient is calm, cooperative, w/o any behavioral disturbances. She has improved PO intake. No periods of agitation or aggression. No depression/ anxiety/SI/HI. Patient is only oriented to self and does not know why she is in the hospital. Patient completed her antibiotic course for UTI. Medication Change: No Medical Record Reviewed: Yes Mental Status Examination - Cognitive Function Orientation: Person Memory: Impaired Attention: Poor Concentration: Poor Association: Loose Fund of Knowledge: Poor Decription of patient's judgement and insights: Chronic poor I/J due to dementia - Mood Mood: Neutral - Affect Affect: Constricted - Speech Speech: Soft - Formal Thought Process Formal Thought Process: Loosening of associations Psychotic Thoughts and Behaviors: NO AH/VH/paranoia/delusions - Suicidal Ideation Suicidal Ideation: No - Homicidal Ideation Homicidal Ideation: No Goal/Treatment Plan - Goal/Treatment Plan Need for Continued Stay: Severe functional impairment Progress Toward Problem(s) and Goals/Treatment Plan: Alzheimer's Dementia w/ behavioral disturbance, Depressive Disorder; patient pending prison placement. -Case discussed w/ POA -Continue Celexa 10 mg PO Daily -Continue Remeron 15 mg PO HS -Continue Aricept 10 mg PO HS -Continue Namenda 5 mg PO Daily -Individual and group therapy -Disposition planning- PAS to [facility] submitted, pending approval for prison placement -Medicine consult appreciated; patient completed antibiotic course for UTI Estimated Date of D/C: 04/18/17
--- NOTE | 2017-04-18 08:12 | PCM.PYCHPN ---
Psychiatric Progress Note - Psychiatric Progress Note Patient seen today, length of contact: Patient evaluated, case discussed w/ staff, chart reviewed Patient Chief Complaint: "I'm okay" Problems Identified/Issues Discussed: Patient is calm, cooperative, w/o any behavioral disturbances. She has improved PO intake. No periods of agitation or aggression. No depression/ anxiety/SI/HI. Patient is only oriented to self and does not know why she is in the hospital. Patient completed her antibiotic course for UTI. Medication Change: No Medical Record Reviewed: Yes Consults ordered or reviewed: Medicine- patient completed antibiotic course for UTI, Podiatry, Physical Therapy, Dietitian referral Mental Status Examination - Cognitive Function Orientation: Person Memory: Impaired Attention: Poor Concentration: Poor Association: Loose Fund of Knowledge: Poor Decription of patient's judgement and insights: Chronic poor I/J due to dementia - Mood Mood: Neutral - Affect Affect: Constricted - Speech Speech: Soft - Formal Thought Process Formal Thought Process: Loosening of associations Psychotic Thoughts and Behaviors: NO AH/VH/paranoia/delusions - Suicidal Ideation Suicidal Ideation: No - Homicidal Ideation Homicidal Ideation: No Goal/Treatment Plan - Goal/Treatment Plan Need for Continued Stay: Severe functional impairment Progress Toward Problem(s) and Goals/Treatment Plan: Alzheimer's Dementia w/ behavioral disturbance, Depressive Disorder; patient pending longterm placement. -Case discussed w/ POA -Continue Celexa 10 mg PO Daily -Continue Remeron 15 mg PO HS -Continue Aricept 10 mg PO HS -Continue Namenda 5 mg PO Daily -Individual and group therapy -Disposition planning- PAS to [facility] submitted, pending approval for longterm placement -Medicine consult appreciated; patient completed antibiotic course for UTI Estimated Date of D/C: 04/19/17
[2017-04-18] MEDS: Levothyroxine 25 MCG TAB PO SCH (08:38)
[2017-04-19] MEDS: Levothyroxine 25 MCG TAB PO SCH (09:43)
--- NOTE | 2017-04-19 13:05 | PCM.BM ---
Treatment Plan Problems - Problems identified on initial assessmt Agressive Behavior Date Initiated: 04/04/17 Time Initiated: 14:11 Assessment reference: NA Status: Referred (Pt is awaiting bed availability to [facility].) Treatment assets and liabiliti Patient Assests: cooperative, good support system Patient Liabilities: medical problems, imparied memory, language/speech - Milieu Protocol Maintain good personal hygiene: every shift Encourage regular showers, every shift Remind patient to perform daily oral care, every shift Assist patient to perform ADL's Maintain personal safety: every shift Educate patient to report safety concerns to staff, every shift Monitor environment for contraband/sharps Medication safety: Monitor for expected outcome, potential side effects: every shift, Assess barriers to learning: every shift, Assess readiness for medication education: every shift Milieu Narrative: Alzheimer's Dementia w/ behavioral disturbance, Depressive Disorder; patient pending [facility] placement. -Case discussed w/ POA -Continue Celexa 10 mg PO Daily -Continue Remeron 15 mg PO HS -Continue Aricept 10 mg PO HS -Continue Namenda 5 mg PO Daily -Individual and group therapy -Disposition planning- PAS to [facility] submitted, pending approval for [facility] placement -Medicine consult appreciated; patient completed antibiotic course for UTI Family Contact Family involvement: Family/SO is involved Family contact: Other Family contact name: Whit Zepeda - Proxy Family contacted how many times per week?: 1 Family contact comment: [phone] Discharge/Continuing Care - Education Needs Education Needs: Family Medication, Family Diagnosis/Disease Process, Family Coping Skills, Family Anger Management skills, Family Placement options, Family Community resources, Family Activities of Daily Living, Family Uses of Medical Equipment, Family Health Practices/Safety, Family Personal Hygiene/Grooming, Family Aftercare Safety Plan, Patient Medication, Patient Diagnosis/Disease Process, Patient Coping Skills, Patient Anger Management skills, Patient Placement options, Patient Community resources, Patient Activities of Daily Living, Patient Uses of Medical Equipment, Patient Health Practices/Safety, Patient Personal Hygiene/Grooming, Patient Aftercare Safety Plan - Discharge Discharge Criteria: Tolerates medication w/o severe side effects, Free of agitation, Normal sleep pattern, Reduction of target symptoms Discharge to:: Home, With Family - Additional Comments 04/05/17 13:18 Pt discussed in team meeting. Reason for admission reviewed and discussed. Pt's social and medical issues reviewed. Pt's medications reviewed and discussed. Pt' s tx plan reviewed. Director Of Occupational Health to contact pt's daughter and POA to obtain collateral information. Director Of Occupational Health will continue to follow case. - Treatment Team Participation Patient/Family/SO Statement: Alzheimer's Dementia w/ behavioral disturbance, Depressive Disorder; patient pending [facility] placement. -Case discussed w/ POA -Continue Celexa 10 mg PO Daily -Continue Remeron 15 mg PO HS -Continue Aricept 10 mg PO HS -Continue Namenda 5 mg PO Daily -Individual and group therapy -Disposition planning- PAS to [facility] submitted, pending approval for [facility] placement -Medicine consult appreciated; patient completed antibiotic course for UTI Discussed with Family/SO: No (Will be informed via t/c ) Was Patient/Family/SO present at Treatment Team Meeting: No (Pt observed to be asleep and not arousable) Treatment Plan Review - Problem Agressive Behavior Date Initiated: 04/12/17 Time Initiated: 14:11 Progress toward outcomes: improved
[2017-04-20] MEDS: Levothyroxine 25 MCG TAB PO SCH (08:52)
--- NOTE | 2017-04-20 13:05 | PCM.PYCHPN ---
Psychiatric Progress Note - Psychiatric Progress Note Patient seen today, length of contact: Patient evaluated, case discussed w/ staff, chart reviewed Patient Chief Complaint: i am fine Problems Identified/Issues Discussed: patient is calm, cooperative, no reported behavioral disturbances. denied s/ hi denied perceptual disturbances, no reported side effects of medications DSM 5 Symptoms Update: dementia Medication Change: No Medical Record Reviewed: Yes Mental Status Examination - Cognitive Function Orientation: Person Memory: Impaired Attention: Poor Concentration: Poor Association: Loose Fund of Knowledge: Poor - Mood Mood: Neutral - Affect Affect: Constricted - Speech Speech: Soft - Formal Thought Process Formal Thought Process: Loosening of associations - Suicidal Ideation Suicidal Ideation: No - Homicidal Ideation Homicidal Ideation: No Goal/Treatment Plan - Goal/Treatment Plan Need for Continued Stay: Severe functional impairment Progress Toward Problem(s) and Goals/Treatment Plan: continue current medications group and supportive therapy Estimated Date of D/C: 04/22/17
[2017-04-21] MEDS: Levothyroxine 25 MCG TAB PO SCH (09:08)
--- NOTE | 2017-04-21 14:34 | PCM.PYCHPN ---
Psychiatric Progress Note - Psychiatric Progress Note Patient seen today, length of contact: Patient evaluated, case discussed w/ staff, chart reviewed Patient Chief Complaint: I am ok Problems Identified/Issues Discussed: patient is calm, cooperative, no reported behavioral disturbances. denied s/ hi denied perceptual disturbances, no reported side effects of medications Medication Change: No Medical Record Reviewed: Yes Mental Status Examination - Cognitive Function Orientation: Person Memory: Impaired Attention: Poor Concentration: Poor Association: Loose Fund of Knowledge: Poor - Mood Mood: Neutral - Affect Affect: Constricted - Speech Speech: Soft - Formal Thought Process Formal Thought Process: Loosening of associations - Suicidal Ideation Suicidal Ideation: No - Homicidal Ideation Homicidal Ideation: No Goal/Treatment Plan - Goal/Treatment Plan Need for Continued Stay: Severe functional impairment Progress Toward Problem(s) and Goals/Treatment Plan: continue current medications group and supportive therapy Estimated Date of D/C: 04/22/17
[2017-04-22] MEDS: Levothyroxine 25 MCG TAB PO SCH (08:21)
--- NOTE | 2017-04-22 08:37 | PCM.PYCHPN ---
Psychiatric Progress Note - Psychiatric Progress Note Patient seen today, length of contact: Patient evaluated, case discussed w/ staff, chart reviewed Patient Chief Complaint: "I'm okay" Problems Identified/Issues Discussed: No new events over the weekend. Patient is calm, cooperative, w/o any behavioral disturbances. She has improved PO intake. No periods of agitation or aggression. No depression/anxiety/SI/HI. Patient is only oriented to self and does not know why she is in the hospital. Patient completed her antibiotic course for UTI. Medication Change: No Medical Record Reviewed: Yes Consults ordered or reviewed: Medicine- patient completed antibiotic course for UTI, Podiatry, Physical Therapy, Dietitian referral Mental Status Examination - Cognitive Function Orientation: Person Memory: Impaired Attention: Poor Concentration: Poor Association: Loose Fund of Knowledge: Poor Decription of patient's judgement and insights: Chronic poor I/J due to dementia - Mood Mood: Neutral - Affect Affect: Constricted - Speech Speech: Soft - Formal Thought Process Formal Thought Process: Loosening of associations Psychotic Thoughts and Behaviors: NO AH/VH/paranoia/delusions - Suicidal Ideation Suicidal Ideation: No - Homicidal Ideation Homicidal Ideation: No Goal/Treatment Plan - Goal/Treatment Plan Need for Continued Stay: Severe functional impairment Progress Toward Problem(s) and Goals/Treatment Plan: Alzheimer's Dementia w/ behavioral disturbance, Depressive Disorder; patient pending senior care placement. -Case discussed w/ POA -Continue Celexa 10 mg PO Daily -Continue Remeron 15 mg PO HS -Continue Aricept 10 mg PO HS -Continue Namenda 5 mg PO Daily -Individual and group therapy -Disposition planning- PAS to [facility] submitted, pending approval for senior care placement -Medicine consult appreciated; patient completed antibiotic course for UTI Estimated Date of D/C: 04/23/17
--- NOTE | 2017-04-23 08:20 | PCM.PYCHPN ---
Psychiatric Progress Note - Psychiatric Progress Note Patient seen today, length of contact: Patient evaluated, case discussed w/ staff, chart reviewed Patient Chief Complaint: "I'm okay" Problems Identified/Issues Discussed: No new events overnight. Patient is calm, cooperative, w/o any behavioral disturbances. She has improved PO intake. No periods of agitation or aggression. No depression/anxiety/SI/HI. Patient is only oriented to self and does not know why she is in the hospital. Patient completed her antibiotic course for UTI. Medication Change: No Medical Record Reviewed: Yes Consults ordered or reviewed: Medicine- patient completed antibiotic course for UTI, Podiatry, Physical Therapy, Dietitian referral Mental Status Examination - Cognitive Function Orientation: Person Memory: Impaired Attention: Poor Concentration: Poor Association: Loose Fund of Knowledge: Poor Decription of patient's judgement and insights: Chronic poor I/J due to dementia - Mood Mood: Neutral - Affect Affect: Broad - Speech Speech: Soft - Formal Thought Process Formal Thought Process: Loosening of associations Psychotic Thoughts and Behaviors: NO AH/VH/paranoia/delusions - Suicidal Ideation Suicidal Ideation: No - Homicidal Ideation Homicidal Ideation: No Goal/Treatment Plan - Goal/Treatment Plan Need for Continued Stay: Severe functional impairment Progress Toward Problem(s) and Goals/Treatment Plan: Alzheimer's Dementia w/ behavioral disturbance, Depressive Disorder; patient pending shelter placement. -Case discussed w/ POA -Continue Celexa 10 mg PO Daily -Continue Remeron 15 mg PO HS -Continue Aricept 10 mg PO HS -Continue Namenda 5 mg PO Daily -Individual and group therapy -Disposition planning- PAS to [facility] submitted, pending approval for shelter placement -Medicine consult appreciated; patient completed antibiotic course for UTI Estimated Date of D/C: 04/26/17
[2017-04-23] MEDS: Levothyroxine 25 MCG TAB PO SCH (08:33)
--- NOTE | 2017-04-24 08:07 | PCM.PYCHPN ---
Psychiatric Progress Note - Psychiatric Progress Note Patient seen today, length of contact: Patient evaluated, case discussed w/ staff, chart reviewed Patient Chief Complaint: "I'm okay" Problems Identified/Issues Discussed: No new events overnight. Patient is calm, cooperative, w/o any behavioral disturbances. She has improved PO intake. No periods of agitation or aggression. No depression/anxiety/SI/HI. Patient is only oriented to self and does not know why she is in the hospital. Patient completed her antibiotic course for UTI. Medication Change: No Medical Record Reviewed: Yes Consults ordered or reviewed: Medicine- patient completed antibiotic course for UTI, Podiatry, Physical Therapy, Dietitian referral Mental Status Examination - Cognitive Function Orientation: Person Memory: Impaired Attention: Poor Concentration: Poor Association: Loose Fund of Knowledge: Poor Decription of patient's judgement and insights: Chronic poor I/J due to dementia - Mood Mood: Neutral - Affect Affect: Broad - Speech Speech: Soft - Formal Thought Process Formal Thought Process: Loosening of associations Psychotic Thoughts and Behaviors: NO AH/VH/paranoia/delusions - Suicidal Ideation Suicidal Ideation: No - Homicidal Ideation Homicidal Ideation: No Goal/Treatment Plan - Goal/Treatment Plan Need for Continued Stay: Severe functional impairment Progress Toward Problem(s) and Goals/Treatment Plan: Alzheimer's Dementia w/ behavioral disturbance, Depressive Disorder; patient pending long term placement. -Case discussed w/ POA -Continue Celexa 10 mg PO Daily -Continue Remeron 15 mg PO HS -Continue Aricept 10 mg PO HS -Continue Namenda 5 mg PO Daily -Individual and group therapy -Disposition planning- PAS to [facility] submitted, pending approval for long term placement -Medicine consult appreciated; patient completed antibiotic course for UTI Estimated Date of D/C: 04/29/17 - Smoking Cessation Smoking Cessation Initiated: No Reason for not providing: Not indicated
[2017-04-24] MEDS: Levothyroxine 25 MCG TAB PO SCH (11:28)
--- NOTE | 2017-04-25 07:16 | PCM.PYCHPN ---
Psychiatric Progress Note - Psychiatric Progress Note Patient seen today, length of contact: Patient evaluated, case discussed w/ staff, chart reviewed Patient Chief Complaint: "I'm okay" Problems Identified/Issues Discussed: No new events. Patient is calm, cooperative, w/o any behavioral disturbances. She has improved PO intake. No periods of agitation or aggression. No depression/anxiety/SI/HI. Patient is only oriented to self and does not know why she is in the hospital. Patient completed her antibiotic course for UTI. Medication Change: No Medical Record Reviewed: Yes Consults ordered or reviewed: Medicine- patient completed antibiotic course for UTI, Podiatry, Physical Therapy, Dietitian referral Mental Status Examination - Cognitive Function Orientation: Person Memory: Impaired Attention: Poor Concentration: Poor Association: Loose Fund of Knowledge: Poor Decription of patient's judgement and insights: Chronic poor I/J due to dementia - Mood Mood: Neutral - Affect Affect: Broad - Speech Speech: Soft - Formal Thought Process Formal Thought Process: Loosening of associations Psychotic Thoughts and Behaviors: NO AH/VH/paranoia/delusions - Suicidal Ideation Suicidal Ideation: No - Homicidal Ideation Homicidal Ideation: No Goal/Treatment Plan - Goal/Treatment Plan Need for Continued Stay: Severe functional impairment Progress Toward Problem(s) and Goals/Treatment Plan: Alzheimer's Dementia w/ behavioral disturbance, Depressive Disorder; patient pending prison placement. -Case discussed w/ POA -Continue Celexa 10 mg PO Daily -Continue Remeron 15 mg PO HS -Continue Aricept 10 mg PO HS -Continue Namenda 5 mg PO Daily -Individual and group therapy -Disposition planning- PAS to [facility] submitted, pending approval for prison placement -Medicine consult appreciated; patient completed antibiotic course for UTI Estimated Date of D/C: 04/29/17
[2017-04-25] MEDS: Levothyroxine 25 MCG TAB PO SCH (08:24)
[2017-04-26] MEDS: Levothyroxine 25 MCG TAB PO SCH (08:27)
--- NOTE | 2017-04-26 08:30 | PCM.PYCHPN ---
Psychiatric Progress Note - Psychiatric Progress Note Patient seen today, length of contact: Patient evaluated, case discussed w/ staff, chart reviewed Patient Chief Complaint: "I'm okay" Problems Identified/Issues Discussed: No new events overnight. Patient is calm, cooperative, w/o any behavioral disturbances. She has improved PO intake. No periods of agitation or aggression. No depression/anxiety/SI/HI. Patient is only oriented to self and does not know why she is in the hospital. Patient completed her antibiotic course for UTI. Medication Change: No Medical Record Reviewed: Yes Consults ordered or reviewed: Medicine- patient completed antibiotic course for UTI, Podiatry, Physical Therapy, Dietitian referral Mental Status Examination - Cognitive Function Orientation: Person Memory: Impaired Attention: Poor Concentration: Poor Association: Loose Fund of Knowledge: Poor Decription of patient's judgement and insights: Chronic poor I/J due to dementia - Mood Mood: Neutral - Affect Affect: Broad - Speech Speech: Soft - Formal Thought Process Formal Thought Process: Loosening of associations Psychotic Thoughts and Behaviors: NO AH/VH/paranoia/delusions - Suicidal Ideation Suicidal Ideation: No - Homicidal Ideation Homicidal Ideation: No Goal/Treatment Plan - Goal/Treatment Plan Need for Continued Stay: Severe functional impairment Progress Toward Problem(s) and Goals/Treatment Plan: Alzheimer's Dementia w/ behavioral disturbance, Depressive Disorder; patient pending senior care placement. -Case discussed w/ POA -Continue Celexa 10 mg PO Daily -Continue Remeron 15 mg PO HS -Continue Aricept 10 mg PO HS -Continue Namenda 5 mg PO Daily -Individual and group therapy -Disposition planning- PAS to [facility] submitted, pending approval for senior care placement -Medicine consult appreciated; patient completed antibiotic course for UTI Estimated Date of D/C: 04/29/17
--- NOTE | 2017-04-26 08:52 | PCM.BM ---
Treatment Plan Problems - Problems identified on initial assessmt Agressive Behavior Date Initiated: 04/04/17 Time Initiated: 14:11 Assessment reference: NA Status: Referred (Pt is awaiting bed availability to [facility].) Treatment assets and liabiliti Patient Assests: cooperative, good support system Patient Liabilities: medical problems, imparied memory, language/speech - Milieu Protocol Maintain good personal hygiene: every shift Encourage regular showers, every shift Remind patient to perform daily oral care, every shift Assist patient to perform ADL's Maintain personal safety: every shift Educate patient to report safety concerns to staff, every shift Monitor environment for contraband/sharps Medication safety: Monitor for expected outcome, potential side effects: every shift, Assess barriers to learning: every shift, Assess readiness for medication education: every shift Milieu Narrative: Alzheimer's Dementia w/ behavioral disturbance, Depressive Disorder; patient pending [facility] placement. -Case discussed w/ POA -Continue Celexa 10 mg PO Daily -Continue Remeron 15 mg PO HS -Continue Aricept 10 mg PO HS -Continue Namenda 5 mg PO Daily -Individual and group therapy -Disposition planning- PAS to [facility] submitted, pending approval for [facility] placement -Medicine consult appreciated; patient completed antibiotic course for UTI Family Contact Family involvement: Family/SO is involved Family contact: Other Family contact name: Whit Zepeda - Proxy Family contacted how many times per week?: 1 Family contact comment: [phone] Discharge/Continuing Care - Education Needs Education Needs: Family Medication, Family Diagnosis/Disease Process, Family Coping Skills, Family Anger Management skills, Family Placement options, Family Community resources, Family Activities of Daily Living, Family Uses of Medical Equipment, Family Health Practices/Safety, Family Personal Hygiene/Grooming, Family Aftercare Safety Plan, Patient Medication, Patient Diagnosis/Disease Process, Patient Coping Skills, Patient Anger Management skills, Patient Placement options, Patient Community resources, Patient Activities of Daily Living, Patient Uses of Medical Equipment, Patient Health Practices/Safety, Patient Personal Hygiene/Grooming, Patient Aftercare Safety Plan - Discharge Discharge Criteria: Tolerates medication w/o severe side effects, Free of agitation, Normal sleep pattern, Reduction of target symptoms Discharge to:: Home, With Family - Additional Comments 04/05/17 13:18 Pt discussed in team meeting. Reason for admission reviewed and discussed. Pt's social and medical issues reviewed. Pt's medications reviewed and discussed. Pt' s tx plan reviewed. Siding Stapler to contact pt's daughter and POA to obtain collateral information. Siding Stapler will continue to follow case. - Treatment Team Participation Patient/Family/SO Statement: Alzheimer's Dementia w/ behavioral disturbance, Depressive Disorder; patient pending [facility] placement. -Case discussed w/ POA -Continue Celexa 10 mg PO Daily -Continue Remeron 15 mg PO HS -Continue Aricept 10 mg PO HS -Continue Namenda 5 mg PO Daily -Individual and group therapy -Disposition planning- PAS to [facility] submitted, pending approval for [facility] placement -Medicine consult appreciated; patient completed antibiotic course for UTI Discussed with Family/SO: No (Will be informed via t/c ) Was Patient/Family/SO present at Treatment Team Meeting: No (Pt observed to be asleep and not arousable) Treatment Plan Review - Problem Agressive Behavior Date Initiated: 04/12/17 Time Initiated: 14:11 Progress toward outcomes: improved - Discharge / Continuing Care Discharge to:: Long Term (Pt awaiting Medicaid to become active before transport to a [facility]. )
[2017-04-27] MEDS: Levothyroxine 25 MCG TAB PO SCH (09:03)
--- NOTE | 2017-04-27 13:16 | PCM.PYCHPN ---
Psychiatric Progress Note - Psychiatric Progress Note Patient seen today, length of contact: Patient evaluated, case discussed w/ staff, chart reviewed Patient Chief Complaint: pt has been improving on the unit and hasb been less anxious and less depressed and no behavior distubances reported. pt is tolerating meds well and no side effects to meds. Medication Change: No Medical Record Reviewed: Yes Mental Status Examination - Cognitive Function Orientation: Person Memory: Impaired Attention: Poor Concentration: Poor Association: Loose Fund of Knowledge: Poor - Mood Mood: Neutral - Affect Affect: Broad - Speech Speech: Soft - Formal Thought Process Formal Thought Process: Loosening of associations - Suicidal Ideation Suicidal Ideation: No - Homicidal Ideation Homicidal Ideation: No Goal/Treatment Plan - Goal/Treatment Plan Need for Continued Stay: Severe functional impairment Progress Toward Problem(s) and Goals/Treatment Plan: will continue to stabilize with meds and therapy . pt is waiting for NH placement. Estimated Date of D/C: 04/29/17
[2017-04-28] MEDS: Levothyroxine 25 MCG TAB PO SCH (08:55)
--- NOTE | 2017-04-29 08:17 | PCM.PYCHPN ---
Psychiatric Progress Note - Psychiatric Progress Note Patient seen today, length of contact: Patient evaluated, case discussed w/ staff, chart reviewed Patient Chief Complaint: "I'm okay" Problems Identified/Issues Discussed: No new events over night. Patient is calm, cooperative, w/o any behavioral disturbances. She has improved PO intake. No periods of agitation or aggression. No depression/anxiety/SI/HI. Patient is only oriented to self and does not know why she is in the hospital. Patient completed her antibiotic course for UTI. Medication Change: No Medical Record Reviewed: Yes Consults ordered or reviewed: Medicine- patient completed antibiotic course for UTI, Podiatry, Physical Therapy, Dietitian referral Mental Status Examination - Cognitive Function Orientation: Person Memory: Impaired Attention: Poor Concentration: Poor Association: Loose Fund of Knowledge: Poor Decription of patient's judgement and insights: Chronic poor I/J due to dementia - Mood Mood: Neutral - Affect Affect: Broad - Speech Speech: Soft - Formal Thought Process Formal Thought Process: Loosening of associations Psychotic Thoughts and Behaviors: NO AH/VH/paranoia/delusions - Suicidal Ideation Suicidal Ideation: No - Homicidal Ideation Homicidal Ideation: No Goal/Treatment Plan - Goal/Treatment Plan Need for Continued Stay: Severe functional impairment Progress Toward Problem(s) and Goals/Treatment Plan: Alzheimer's Dementia w/ behavioral disturbance, Depressive Disorder; patient pending [facility] placement. -Case discussed w/ POA -Continue Celexa 10 mg PO Daily -Continue Remeron 15 mg PO HS -Continue Aricept 10 mg PO HS -Continue Namenda 5 mg PO Daily -Individual and group therapy -Disposition planning- pending [facility] placement -Medicine consult appreciated; patient completed antibiotic course for UTI Estimated Date of D/C: 05/01/17 - Smoking Cessation Smoking Cessation Initiated: No Reason for not providing: Not indicated
[2017-04-29] MEDS: Levothyroxine 25 MCG TAB PO SCH (08:42)
[2017-04-30] MEDS: Levothyroxine 25 MCG TAB PO SCH (08:38)
--- NOTE | 2017-04-30 08:38 | PCM.PYCHPN ---
Psychiatric Progress Note - Psychiatric Progress Note Patient seen today, length of contact: Patient evaluated, case discussed w/ staff, chart reviewed Patient Chief Complaint: "I'm okay" Problems Identified/Issues Discussed: No new events. Patient is calm, cooperative, w/o any behavioral disturbances. She has improved PO intake. No periods of agitation or aggression. No depression/anxiety/SI/HI. Patient is only oriented to self and does not know why she is in the hospital. Patient completed her antibiotic course for UTI. Medication Change: No Medical Record Reviewed: Yes Consults ordered or reviewed: Medicine- patient completed antibiotic course for UTI, Podiatry, Physical Therapy, Dietitian referral Mental Status Examination - Cognitive Function Orientation: Person Memory: Impaired Attention: Poor Concentration: Poor Association: Loose Fund of Knowledge: Poor Decription of patient's judgement and insights: Chronic poor I/J due to dementia - Mood Mood: Neutral - Affect Affect: Broad - Speech Speech: Soft - Formal Thought Process Formal Thought Process: Loosening of associations Psychotic Thoughts and Behaviors: NO AH/VH/paranoia/delusions - Suicidal Ideation Suicidal Ideation: No - Homicidal Ideation Homicidal Ideation: No Goal/Treatment Plan - Goal/Treatment Plan Need for Continued Stay: Severe functional impairment Progress Toward Problem(s) and Goals/Treatment Plan: Alzheimer's Dementia w/ behavioral disturbance, Depressive Disorder; patient [facility]. -Case discussed w/ POA -Continue Celexa 10 mg PO Daily -Continue Remeron 15 mg PO HS -Continue Aricept 10 mg PO HS -Continue Namenda 5 mg PO Daily -Individual and group therapy -Disposition planning- pending [facility] placement -Medicine consult appreciated; patient completed antibiotic course for UTI Estimated Date of D/C: 05/01/17
--- NOTE | 2017-05-01 07:52 | PCM.PYCHPN ---
Psychiatric Progress Note - Psychiatric Progress Note Patient seen today, length of contact: Patient evaluated, case discussed w/ staff, chart reviewed Patient Chief Complaint: "I'm okay" Problems Identified/Issues Discussed: No new events overnight. Patient is calm, cooperative, w/o any behavioral disturbances. She has improved PO intake. No periods of agitation or aggression. No depression/anxiety/SI/HI. Patient is only oriented to self and does not know why she is in the hospital. Patient completed her antibiotic course for UTI. Medication Change: No Medical Record Reviewed: Yes Consults ordered or reviewed: Medicine- patient completed antibiotic course for UTI, Podiatry, Physical Therapy, Dietitian referral Mental Status Examination - Cognitive Function Orientation: Person Memory: Impaired Attention: Poor Concentration: Poor Association: Loose Fund of Knowledge: Poor Decription of patient's judgement and insights: Chronic poor I/J due to dementia - Mood Mood: Neutral - Affect Affect: Broad - Speech Speech: Soft - Formal Thought Process Formal Thought Process: Loosening of associations Psychotic Thoughts and Behaviors: NO AH/VH/paranoia/delusions - Suicidal Ideation Suicidal Ideation: No - Homicidal Ideation Homicidal Ideation: No Goal/Treatment Plan - Goal/Treatment Plan Need for Continued Stay: Severe functional impairment Progress Toward Problem(s) and Goals/Treatment Plan: Alzheimer's Dementia w/ behavioral disturbance, Depressive Disorder; patient pending [facility] placement. -Case discussed w/ POA -Continue Celexa 10 mg PO Daily -Continue Remeron 15 mg PO HS -Continue Aricept 10 mg PO HS -Continue Namenda 5 mg PO Daily -Individual and group therapy -Disposition planning- pending [facility] placement -Medicine consult appreciated; patient completed antibiotic course for UTI Estimated Date of D/C: 05/02/17 - Smoking Cessation Smoking Cessation Initiated: No Reason for not providing: Not indicated
[2017-05-01] MEDS: Levothyroxine 25 MCG TAB PO SCH (08:33)
--- NOTE | 2017-05-02 08:40 | PCM.PYCHPN ---
Psychiatric Progress Note - Psychiatric Progress Note Patient seen today, length of contact: Patient evaluated, case discussed w/ staff, chart reviewed Patient Chief Complaint: "I'm okay" Problems Identified/Issues Discussed: No new events. Patient is calm, cooperative, w/o any behavioral disturbances. She has improved PO intake. No periods of agitation or aggression. No depression/anxiety/SI/HI. Patient is only oriented to self and does not know why she is in the hospital. Patient completed her antibiotic course for UTI. Medication Change: No Medical Record Reviewed: Yes Consults ordered or reviewed: Medicine- patient completed antibiotic course for UTI, Podiatry, Physical Therapy, Dietitian referral Mental Status Examination - Cognitive Function Orientation: Person Memory: Impaired Attention: Poor Concentration: Poor Association: Loose Fund of Knowledge: Poor Decription of patient's judgement and insights: Chronic poor I/J due to dementia - Mood Mood: Neutral - Affect Affect: Broad - Speech Speech: Soft - Formal Thought Process Formal Thought Process: Loosening of associations Psychotic Thoughts and Behaviors: NO AH/VH/paranoia/delusions - Suicidal Ideation Suicidal Ideation: No - Homicidal Ideation Homicidal Ideation: No Goal/Treatment Plan - Goal/Treatment Plan Need for Continued Stay: Severe functional impairment Progress Toward Problem(s) and Goals/Treatment Plan: Alzheimer's Dementia w/ behavioral disturbance, Depressive Disorder; patient pending [facility] placement. -Case discussed w/ POA -Continue Celexa 10 mg PO Daily -Continue Remeron 15 mg PO HS -Continue Aricept 10 mg PO HS -Continue Namenda 5 mg PO Daily -Individual and group therapy -Disposition planning- pending [facility] placement -Medicine consult appreciated; patient completed antibiotic course for UTI Estimated Date of D/C: 05/08/17
[2017-05-02] MEDS: Levothyroxine 25 MCG TAB PO SCH (11:50)
--- NOTE | 2017-05-03 08:39 | PCM.PYCHPN ---
Psychiatric Progress Note - Psychiatric Progress Note Patient seen today, length of contact: Patient evaluated, case discussed w/ staff, chart reviewed Patient Chief Complaint: "I'm okay" Problems Identified/Issues Discussed: No new events overnight. Patient is calm, cooperative, w/o any behavioral disturbances. She has improved PO intake. No periods of agitation or aggression. No depression/anxiety/SI/HI. Patient is only oriented to self and does not know why she is in the hospital. Patient completed her antibiotic course for UTI. Medication Change: No Medical Record Reviewed: Yes Consults ordered or reviewed: Medicine- patient completed antibiotic course for UTI, Podiatry, Physical Therapy, Dietitian referral Mental Status Examination - Cognitive Function Orientation: Person Memory: Impaired Attention: Poor Concentration: Poor Association: Loose Fund of Knowledge: Poor Decription of patient's judgement and insights: Chronic poor I/J due to dementia - Mood Mood: Neutral - Affect Affect: Broad - Speech Speech: Soft - Formal Thought Process Formal Thought Process: Loosening of associations Psychotic Thoughts and Behaviors: NO AH/VH/paranoia/delusions - Suicidal Ideation Suicidal Ideation: No - Homicidal Ideation Homicidal Ideation: No Goal/Treatment Plan - Goal/Treatment Plan Need for Continued Stay: Severe functional impairment Progress Toward Problem(s) and Goals/Treatment Plan: Alzheimer's Dementia w/ behavioral disturbance, Depressive Disorder; patient pending [facility] placement. -Case discussed w/ POA -Continue Celexa 10 mg PO Daily -Continue Remeron 15 mg PO HS -Continue Aricept 10 mg PO HS -Continue Namenda 5 mg PO Daily -Individual and group therapy -Disposition planning- pending [facility] placement -Medicine consult appreciated; patient completed antibiotic course for UTI Estimated Date of D/C: 05/08/17 - Smoking Cessation Smoking Cessation Initiated: No Reason for not providing: Not indicated
[2017-05-03] MEDS: Levothyroxine 25 MCG TAB PO SCH (09:14)
--- NOTE | 2017-05-03 11:18 | PCM.BM ---
Treatment Plan Problems - Problems identified on initial assessmt Agressive Behavior Date Initiated: 04/04/17 Time Initiated: 14:11 Assessment reference: NA Status: Referred (Pt is awaiting bed availability to [facility].) Treatment assets and liabiliti Patient Assests: cooperative, good support system Patient Liabilities: medical problems, imparied memory, language/speech - Milieu Protocol Maintain good personal hygiene: every shift Encourage regular showers, every shift Remind patient to perform daily oral care, every shift Assist patient to perform ADL's Maintain personal safety: every shift Educate patient to report safety concerns to staff, every shift Monitor environment for contraband/sharps Medication safety: Monitor for expected outcome, potential side effects: every shift, Assess barriers to learning: every shift, Assess readiness for medication education: every shift Milieu Narrative: Alzheimer's Dementia w/ behavioral disturbance, Depressive Disorder; patient pending group home placement. -Case discussed w/ POA -Continue Celexa 10 mg PO Daily -Continue Remeron 15 mg PO HS -Continue Aricept 10 mg PO HS -Continue Namenda 5 mg PO Daily -Individual and group therapy -Disposition planning- pending group home placement -Medicine consult appreciated; patient completed antibiotic course for UTI Family Contact Family involvement: Family/SO is involved Family contact: Other Family contact name: Whit Zepeda - Proxy Family contacted how many times per week?: 1 Family contact comment: [phone] Discharge/Continuing Care - Education Needs Education Needs: Family Medication, Family Diagnosis/Disease Process, Family Coping Skills, Family Anger Management skills, Family Placement options, Family Community resources, Family Activities of Daily Living, Family Uses of Medical Equipment, Family Health Practices/Safety, Family Personal Hygiene/Grooming, Family Aftercare Safety Plan, Patient Medication, Patient Diagnosis/Disease Process, Patient Coping Skills, Patient Anger Management skills, Patient Placement options, Patient Community resources, Patient Activities of Daily Living, Patient Uses of Medical Equipment, Patient Health Practices/Safety, Patient Personal Hygiene/Grooming, Patient Aftercare Safety Plan - Discharge Discharge Criteria: Tolerates medication w/o severe side effects, Free of agitation, Normal sleep pattern, Reduction of target symptoms Discharge to:: Intermediate (Pt awaiting Medicaid to become active before transport to a group home. ) - Additional Comments 04/05/17 13:18 Pt discussed in team meeting. Reason for admission reviewed and discussed. Pt's social and medical issues reviewed. Pt's medications reviewed and discussed. Pt' s tx plan reviewed. Therapeutic Riding Instructor to contact pt's daughter and POA to obtain collateral information. Therapeutic Riding Instructor will continue to follow case. - Treatment Team Participation Patient/Family/SO Statement: Alzheimer's Dementia w/ behavioral disturbance, Depressive Disorder; patient pending group home placement. -Case discussed w/ POA -Continue Celexa 10 mg PO Daily -Continue Remeron 15 mg PO HS -Continue Aricept 10 mg PO HS -Continue Namenda 5 mg PO Daily -Individual and group therapy -Disposition planning- pending group home placement -Medicine consult appreciated; patient completed antibiotic course for UTI Discussed with Family/SO: No (Will be informed via t/c ) Was Patient/Family/SO present at Treatment Team Meeting: No (Pt observed to be asleep and not arousable) Treatment Plan Review Patient participation: No (Pt has a legal guardian as POA.) Family/SO/Caregiver participation: No - Problem Agressive Behavior Date Initiated: 04/12/17 Time Initiated: 14:11 Progress toward outcomes: resolved (Pt has not exhibited any aggression/ agitation in over a week.) - Discharge / Continuing Care Discharge to:: Intermediate (Pt awaiting activation of Medicaid to be transferred to group home for LTC. )
--- NOTE | 2017-05-04 09:58 | PCM.PYCHPN ---
Psychiatric Progress Note - Psychiatric Progress Note Patient seen today, length of contact: Patient evaluated, case discussed w/ staff, chart reviewed Patient Chief Complaint: I am ok Problems Identified/Issues Discussed: patient is calm, cooperative, no reported behavioral disturbances. denied s/ hi denied perceptual disturbances, no reported side effects of medications Medical Problems: uti clearing DSM 5 Symptoms Update: dementia with behavioral disturbances Medication Change: No Medical Record Reviewed: Yes Mental Status Examination - Cognitive Function Orientation: Person Memory: Impaired Attention: Poor Concentration: Poor Association: Loose Fund of Knowledge: Poor - Mood Mood: Neutral - Affect Affect: Broad - Speech Speech: Soft - Formal Thought Process Formal Thought Process: Loosening of associations - Suicidal Ideation Suicidal Ideation: No - Homicidal Ideation Homicidal Ideation: No Goal/Treatment Plan - Goal/Treatment Plan Need for Continued Stay: Severe functional impairment Progress Toward Problem(s) and Goals/Treatment Plan: continue current medications group and supportive therapy Estimated Date of D/C: 05/08/17
[2017-05-04] MEDS: Levothyroxine 25 MCG TAB PO SCH (10:15)
[2017-05-05] MEDS: Levothyroxine 25 MCG TAB PO SCH (08:26)
--- NOTE | 2017-05-06 08:00 | PCM.PYCHPN ---
Psychiatric Progress Note - Psychiatric Progress Note Patient seen today, length of contact: Patient evaluated, case discussed w/ staff, chart reviewed Patient Chief Complaint: "I'm okay" Problems Identified/Issues Discussed: No new events over the weekend. Patient is calm, cooperative, w/o any behavioral disturbances. She has improved PO intake. No periods of agitation or aggression. No depression/anxiety/SI/HI. Patient is only oriented to self and does not know why she is in the hospital. Patient completed her antibiotic course for UTI. Medication Change: No Medical Record Reviewed: Yes Consults ordered or reviewed: Medicine- patient completed antibiotic course for UTI, Podiatry, Physical Therapy, Dietitian referral Mental Status Examination - Cognitive Function Orientation: Person Memory: Impaired Attention: Poor Concentration: Poor Association: Loose Fund of Knowledge: Poor Decription of patient's judgement and insights: Chronic poor I/J due to dementia - Mood Mood: Neutral - Affect Affect: Broad - Speech Speech: Soft - Formal Thought Process Formal Thought Process: Loosening of associations Psychotic Thoughts and Behaviors: No AH/VH/paranoia/delusions - Suicidal Ideation Suicidal Ideation: No - Homicidal Ideation Homicidal Ideation: No Goal/Treatment Plan - Goal/Treatment Plan Need for Continued Stay: Severe functional impairment Progress Toward Problem(s) and Goals/Treatment Plan: Alzheimer's Dementia w/ behavioral disturbance, Depressive Disorder; patient pending shelter placement. -Case discussed w/ POA -Continue Celexa 10 mg PO Daily -Continue Remeron 15 mg PO HS -Continue Aricept 10 mg PO HS -Continue Namenda 5 mg PO Daily -Individual and group therapy -Disposition planning- pending shelter placement -Medicine consult appreciated; patient completed antibiotic course for UTI Estimated Date of D/C: 05/10/17
[2017-05-06] MEDS: Levothyroxine 25 MCG TAB PO SCH (08:22)
[2017-05-07 06:13] VITALS: PULSE 82; RESP 19; TEMP 98.2
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
[2017-05-07] MEDS: Levothyroxine 25 MCG TAB PO SCH (09:47)
[2017-05-07 09:50] VITALS: BP 128/82
== END 2017-05-07 12:30 | DRG 57 ==
LOC: H.ER 17:21 → H.ERHOLD 21:03 → H.STEP 23:10
PROVIDERS: ADMIT Psychiatry & Neurology Psychiatry; ATTEND Psychiatry & Neurology Psychiatry
PROC: GZHZZZZ Group Psychotherapy (ICD-10-PCS; principal; 2017-04-03)
PROC: GZ56ZZZ Individual Psychotherapy, Supportive (ICD-10-PCS; 2017-04-03)
DX: G30.9 Alzheimer's disease, unspecified (principal); F02.81 Dementia in other diseases classified elsewhere, unspecified severity, with behavioral disturbance; E11.9 Type 2 diabetes mellitus without complications; E78.00 Pure hypercholesterolemia, unspecified; E03.9 Hypothyroidism, unspecified; B35.1 Tinea unguium; N39.0 Urinary tract infection, site not specified; I10 Essential (primary) hypertension; E78.5 Hyperlipidemia, unspecified; K21.9 Gastro-esophageal reflux disease without esophagitis; F32.9 Major depressive disorder, single episode, unspecified; F41.9 Anxiety disorder, unspecified; R10.13 Epigastric pain; L60.3 Nail dystrophy